=== PATIENT | male | born 1955 | race Caucasian/White ===

== ENCOUNTER 2022-10-07 20:33 | Inpatient (IN) | payer SELFPAY ==
[~2022-10-07] VITALS: Ht 188 cm; Wt 103.9 kg
[2022-10-07 20:50] VITALS: BP_SYST 189
--- NOTE | 2022-10-07 20:50 | NUR ---
Triaged and placed patient in ER bed 3 for evaluation. Report given to Jona YANEZ for continuity of care. VSS, no acute respiratory distress noted at this time. Instructed to notify ED staff for any changes in condition or worsening of symptoms. Patient verbalized understanding.
--- NOTE | 2022-10-07 20:50 | NUR ---
Triaged and placed patient back to the waiting room. No acute respiratory distress at this time. VSS. Informed patient to notify ED staff for any changes in condition or worsening of symptoms while waiting to be seen by a provider. Patient verbalized understanding.
--- NOTE | 2022-10-07 20:57 | NUR ---
Dr. Scott is at bedside examining the patient.
[2022-10-07 21:20] LABS: EOSINOPHILS # (AUTO) 0.2 K/uL (0.0-0.4); EOSINOPHILS % (AUTO) 2.4 % (0.0-4.0); LYMPHOCYTES # (AUTO) 0.8 K/uL (1.0-5.5); MONOCYTES # (AUTO) 0.8 K/uL (0.0-1.0)
[2022-10-07 21:25] LABS: BASOPHILS # (AUTO) 0.1 K/uL (0.0-0.2); BASOPHILS % (AUTO) 1.6 % (0.0-2.0); HEMATOCRIT 28.2 % (36-54); HEMOGLOBIN 9.7 g/dL (14.0-18.0); LYMPHOCYTES % (AUTO) 9.3 % (20.5-51.5); MEAN CORPUSCULAR HEMOGLOBIN 29 pg (27-31); MEAN CORPUSCULAR HGB CONC 35 % (32-36); MEAN CORPUSCULAR VOLUME 83 fL (79.0-98.0); MONOCYTES % (AUTO) 10.2 % (1.7-9.3); NEUTROPHILS # (AUTO) 6.3 K/uL (1.8-7.7); NEUTROPHILS % (AUTO) 76.5 % (40.0-70.0); PLATELET COUNT (AUTO) 299 K/uL (130-430); RED BLOOD CELL COUNT(AUTO) 3.39 MIL/uL (4.2-6.2); RED CELL DISTRIBUTION WIDTH 15.6 % (9.0-15.0); WHITE BLOOD COUNT (AUTO) 8.3 K/uL (4.8-10.8)
[2022-10-07 21:37] LABS: INR 1.1 (0.80-1.20); PROTHROMBIN TIME 11.5 SECS (9.5-12.5)
[2022-10-07 21:41] LABS: ALANINE AMINOTRANSFERASE 15 U/L (12-78); ANION GAP 20 (5-15); ASPARTATE AMINOTRANSFERASE 11 U/L (10-37); CALCIUM 7.1 mg/dL (8.4-11.0); CHLORIDE 100 mmol/L (98-107); GFR AFRICAN AMERICAN 6 mL/min (>90); GLUCOSE 110 mg/dL (70-99); TOTAL BILIRUBIN 0.4 mg/dL (0.0-1.0)
[2022-10-07 21:47] LABS: CREATININE 10.93 mg/dL (0.55-1.30); UREA NITROGEN, BLOOD 141 mg/dL (8-21)
[2022-10-07] MEDS ORDERED: NACL 0.9% 1,000 ML IV ONE (23:45)
--- NOTE | 2022-10-08 00:02 | NUR ---
Admit bed requested Patient will be admitted to care of . Admitted to TELE unit. Diagnosis ACUTE RENAL FAILURE Inpatient (Yes or No)Y Observation (Yes or No) N Orientation concerns or request close to nursing station (Yes or No) N Covid Status NA On vent or bipap N Isolation requirements N Needs a sitter N From Home (Yes or if No enter name of facility) Y Requires Dialysis N (Yes or No) Med Rec Completed Y (Yes of No)
[2022-10-08] MEDS ORDERED: NACL 0.9% 1,000 ML IV ONE ×2 (00:15)
[2022-10-08] MEDS ORDERED: hydrALAZINE HCL 10 MG TABLET PO ONE ×2 (01:15→02:15)
[2022-10-08] MEDS ORDERED: hydrALAZINE HCL 20 MG/ML VIAL ONE ×2 (01:17→02:20)
--- NOTE | 2022-10-08 02:04 | NUR ---
AFTER BONILLA INSERTION 4000ML EMPIED. ALSO AT BEDSIDE FOR ADDITIONAL EVAL. PT IN NO DISTRESSAND STATES HE FEELS BETTER.
--- NOTE | 2022-10-08 03:47 | NUR ---
1000 ML OF URINE EMPIED FROM BONILLA CATH PRIOR TO TRANSPORT TO ROOM.
--- NOTE | 2022-10-08 03:53 | NUR ---
Patient will be admitted to care of DR CEE. Admitted to TELE unit. Will go to room 102B . Belongings list completed. Complete and up to date summary report printed. SBAR report to be given at bedside with opportunity for questions.
[2022-10-08 04:23] LABS: ALBUMIN 3.5 g/dL (3.4-4.8); TOTAL BILIRUBIN 0.4 mg/dL (0.0-1.0)
[2022-10-08 04:29] LABS: CALCIUM 6.3 mg/dL (8.4-11.0)
[2022-10-08 04:30] LABS: CREATININE 10.49 mg/dL (0.55-1.30)
[2022-10-08 04:35] VITALS: BP_SYST 143
[2022-10-08] MEDS ORDERED: CALCIUM GLUCONATE 1 GM/10 ML VIAL IVP ONE (04:45)
--- NOTE | 2022-10-08 06:19 | NUR ---
CONSULTATION PAGED REASON FOR CONSULTATION: ELEVATED BUN AND CREATANINE WAS CONSULT CALLED? Y PERSON WHO WAS NOTIFIED: ZOHRA CONSULTING PHYSICIAN: JARED DURAND GUNSTOCK SPRAY UNIT ADJUSTER SPECIALTY: NEPHRO GUNSTOCK SPRAY UNIT ADJUSTER PHONE NUMBER: [phone] REQUESTING PHYSICIAN: DR.[facility]
--- NOTE | 2022-10-08 06:21 | NUR ---
DR. CEE NOTIFIED OF CRITICAL LAB VALUES OF BUN, CR, CA. NEW CONSULT ADDED.. NO OTHER ORDERS. CA COVERED PER ORDERS.
[2022-10-08] MEDS ORDERED: MORPHINE 2 MG/ML INJ. SYRINGE IVP ONE (07:30)
[2022-10-08] MEDS ORDERED: NALOXONE HCL 0.4 MG/ML AMP (NARCAN) IVP PRN ×3 (07:30→07:45)
[2022-10-08] MEDS ORDERED: MORPHINE 2 MG/ML INJ. SYRINGE IVP PRN (07:45)
[2022-10-08] MEDS ORDERED: POTASSIUM CHLORIDE 20 MEQ TAB.PRT.SR PO PRN (07:45)
[2022-10-08] MEDS ORDERED: ACETAMINOPHEN 325 MG TABLET PO PRN ×2 (07:45→10:00)
[2022-10-08] MEDS ORDERED: DOCUSATE SODIUM 100 MG CAPSULE PO PRN (07:45)
[2022-10-08] MEDS ORDERED: ONDANSETRON HCL 4 MG/2 ML VIAL IVP PRN (07:45)
[2022-10-08] MEDS ORDERED: LORazepam 2 MG/ML VIAL IVP PRN (07:45)
[2022-10-08] MEDS ORDERED: MUPIROCIN 2% TOPICAL OINTMENT 22 GM NS PRN (07:45)
[2022-10-08] MEDS ORDERED: MAGNESIUM SULFATE 50 ML IV PRN (07:45)
[2022-10-08 08:00] VITALS: BP_SYST 137
--- NOTE | 2022-10-08 08:00 | NUR ---
Start of shift Pt sitting up in bed eating his breakfast. Tele unit attached and intact. IV in LAC intact and patent infusing IVF's. St catheter intact and draining bloody clear drainage. Dr Asif on the floor doing rounds at this time.
[2022-10-08] MEDS ORDERED: CALCIUM CARBONATE 650 MG TABLET PO SCH (09:00)
[2022-10-08] MEDS ORDERED: NS IRRIG SOLN 1000 ML IR ONE (10:00)
[2022-10-08] MEDS ORDERED: LIDOCAINE 1% 10 MG/ML, 20 ML MDV ONE ×2 (10:00)
[2022-10-08] MEDS ORDERED: NS 1000 ML IV.SOLN IV ONE (10:00)
[2022-10-08 11:08] VITALS: BP_SYST 104
[2022-10-08] MEDS: METOPROLOL TARTRATE 25 MG TABLET PO SCH ×2 (12:15→20:56)
--- NOTE | 2022-10-08 12:35 | NUR ---
CONSULTATION PAGED REASON FOR CONSULTATION: BLOODY URINE WAS CONSULT CALLED? Y PERSON WHO WAS NOTIFIED: AWA CONSULTING PHYSICIAN: ADELSO PARIKH IMAGE CONSULTANT SPECIALTY: UROLOGY IMAGE CONSULTANT PHONE NUMBER: [phone] REQUESTING PHYSICIAN: DR.[facility]
[2022-10-08] MEDS ORDERED: METOPROLOL TARTRATE 25 MG TABLET ONE (13:37)
--- NOTE | 2022-10-08 14:05 | NUR ---
Note Pt resting in bed after finishing his lunch. LAC IV intact and patent infusing IVF's well. Call light within reach. Pt denies any needs all shift. St catheter intact and draining, drainage excavating supervisor at this time from dark pink/light red drainage.
--- NOTE | 2022-10-08 14:30 | NUR ---
Note Dr De Jesus (nephro) at bedside assessing pt and writing orders.
[2022-10-08] MEDS ORDERED: PHENAZOPYRIDINE HCL 100 MG TABLET PO ONE (14:45)
[2022-10-08] MEDS: NACL 0.9% 1,000 ML IV SCH (14:52)
[2022-10-08 16:30] VITALS: BP_SYST 153
[2022-10-08] MEDS: PHENAZOPYRIDINE HCL 100 MG TABLET PO SCH (17:41)
--- NOTE | 2022-10-08 18:35 | NUR ---
End of shift Pt has been having high BP due to pain, pt refused pain medications all shift. IV in LAC intact and patent infusing IVF's well. Pt's tele unit attached and intact. St catheter intact and draining. Pt was checked on q1' and PRN all shift for needs and care. Pt was maintained with safety precautions all shift. No needs noted. Bed in low position and bed alarm on. Call light within reach.
[2022-10-08 19:54] VITALS: BP_SYST 165
--- NOTE | 2022-10-08 20:00 | NUR ---
recieved pt from AM shift.pt sitting up in bed eating his dinner ( 50%). Tele unit attached and intact. IV NS @ 100 in LAC intact and patent infusing IVF's. pt has abdominal pain from cramps. will continously monitor. St catheter intact and draining bloody clear drainage. emptied 1000 ml bloody tinged urine. pt ambulatory, choses bedrest due to pain. will continue to monitor.
[2022-10-08] MEDS: MORPHINE 2 MG/ML INJ. SYRINGE IVP PRN (20:55)
[2022-10-08] MEDS: CALCIUM 500 MG/TAB PO SCH (20:56)
[2022-10-09] VITALS (7 sets, daily range): BP systolic 133–176
[2022-10-09] MEDS: NACL 0.9% 1,000 ML IV SCH ×2 (00:19→10:30)
[2022-10-09 05:08] LABS: BASOPHILS # (AUTO) 0.1 K/uL (0.0-0.2); BASOPHILS % (AUTO) 1.3 % (0.0-2.0); EOSINOPHILS # (AUTO) 0.1 K/uL (0.0-0.4); EOSINOPHILS % (AUTO) 1.4 % (0.0-4.0); HEMATOCRIT 31.1 % (36-54); HEMOGLOBIN 10.6 g/dL (14.0-18.0); LYMPHOCYTES # (AUTO) 0.8 K/uL (1.0-5.5); MEAN CORPUSCULAR HEMOGLOBIN 28 pg (27-31); MEAN CORPUSCULAR HGB CONC 34 % (32-36); MEAN CORPUSCULAR VOLUME 84 fL (79.0-98.0); MONOCYTES # (AUTO) 0.9 K/uL (0.0-1.0); MONOCYTES % (AUTO) 9.9 % (1.7-9.3); NEUTROPHILS % (AUTO) 78.4 % (40.0-70.0); PLATELET COUNT (AUTO) 326 K/uL (130-430); RED BLOOD CELL COUNT(AUTO) 3.72 MIL/uL (4.2-6.2); RED CELL DISTRIBUTION WIDTH 15.9 % (9.0-15.0); WHITE BLOOD COUNT (AUTO) 8.9 K/uL (4.8-10.8)
[2022-10-09 06:20] LABS: CALCIUM 6.8 mg/dL (8.4-11.0); CREATININE 9.33 mg/dL (0.55-1.30)
--- NOTE | 2022-10-09 07:20 | NUR ---
OPENING NOTE Patient laying in bed. A/O x4, Malian speaking. Breathing is even and unlabored on RA. No pain, no SOB, no distress noted. Patient has IV to LAC 22g patent on infusion pump. St draining orange/red urine to gravity due to medication. Patient is on Cardiac diet and able to feed himself. All needs met at this time. Bed is locked in lowest position. Call light within reach. Will continue with POC.
[2022-10-09] MEDS ORDERED: amLODIPine BESYLATE 5 MG TABLET PO SCH (09:00)
[2022-10-09] MEDS: METOPROLOL TARTRATE 50 MG TABLET PO SCH ×2 (09:31→20:25)
[2022-10-09] MEDS: PHENAZOPYRIDINE HCL 100 MG TABLET PO SCH ×2 (09:32→12:12)
[2022-10-09] MEDS: CALCIUM 500 MG/TAB PO SCH ×2 (09:43→20:25)
--- NOTE | 2022-10-09 12:00 | NUR ---
ROUNDS Patient laying in bed, resting. Breathing is even and unlabored on RA. No pain, no SOB, no distress noted. St draining orange/red urine to gravity. All needs met at this time. Bed is locked in lowest position. Call light within reach. Will continue with POC.
[2022-10-09] MEDS ORDERED: TAMS-11 PO (12:16)
--- NOTE | 2022-10-09 12:30 | NUR ---
UROLOGY Spoke with WRIST HEMMER saying she will see him later today or tomorrow regarding vegas/urinary needs.
--- NOTE | 2022-10-09 13:02 | NUR ---
MD Asif Relayed message to regarding urology and stated to stop Pyridium and to allow patient to start Flomax. MD wants Nephro to clear him before any discharge plan.
[2022-10-09] MEDS ORDERED: TAMSULOSIN HCL 0.4 MG CAP PO ONE (13:30)
[2022-10-09] MEDS: MORPHINE 2 MG/ML INJ. SYRINGE IVP PRN (14:50)
--- NOTE | 2022-10-09 18:45 | NUR ---
CLOSING NOTE Patient laying in bed, resting. A/O x4, St Helenian speaking. Breathing is even and unlabored on RA. No pain, no SOB, no distress noted. Patient has IV to LAC 22g patent on infusion pump. St draining orange/red urine to gravity. Patient is on Cardiac diet and able to feed himself. All needs met at this time. Bed is locked in lowest position. Call light within reach. Will endorse to nightshift nurse.
--- NOTE | 2022-10-09 20:00 | NUR ---
Opening notes Pt AAOx4, VSS, no s/s distress or discomfort noted. St catheter draining to gravity with orange urine. IVF infusing at ordered rate on L. AC 20G clear and patent. Call light/items within reach. To monitor.
[2022-10-09] MEDS: TAMSULOSIN HCL 0.4 MG CAP PO SCH (20:25)
[2022-10-10] MEDS: NACL 0.9% 1,000 ML IV SCH ×3 (00:33→16:30)
[2022-10-10 01:09] VITALS: BP_SYST 144
[2022-10-10 05:10] LABS: BASOPHILS # (AUTO) 0.2 K/uL (0.0-0.2); BASOPHILS % (AUTO) 1.9 % (0.0-2.0); EOSINOPHILS # (AUTO) 0.3 K/uL (0.0-0.4); EOSINOPHILS % (AUTO) 4.1 % (0.0-4.0); HEMATOCRIT 28.9 % (36-54); HEMOGLOBIN 9.7 g/dL (14.0-18.0); LYMPHOCYTES # (AUTO) 1.1 K/uL (1.0-5.5); LYMPHOCYTES % (AUTO) 12.6 % (20.5-51.5); MEAN CORPUSCULAR HEMOGLOBIN 28 pg (27-31); MEAN CORPUSCULAR HGB CONC 34 % (32-36); MEAN CORPUSCULAR VOLUME 83 fL (79.0-98.0); MONOCYTES % (AUTO) 12.4 % (1.7-9.3); NEUTROPHILS # (AUTO) 5.8 K/uL (1.8-7.7); PLATELET COUNT (AUTO) 295 K/uL (130-430); RED BLOOD CELL COUNT(AUTO) 3.47 MIL/uL (4.2-6.2); RED CELL DISTRIBUTION WIDTH 15.9 % (9.0-15.0); WHITE BLOOD COUNT (AUTO) 8.3 K/uL (4.8-10.8)
--- NOTE | 2022-10-10 05:50 | NUR ---
Closing notes Pt asleep, no s/s distress or discomfort noted. St catheter draining to gravity with orange urine, good output. IVF infusing at ordered rate on L. AC 20G clear and patent. Call light/items within reach. To endorse to AM nurse.
[2022-10-10 05:55] LABS: CALCIUM 6.3 mg/dL (8.4-11.0); CREATININE 8.3 mg/dL (0.55-1.30)
[2022-10-10] MEDS ORDERED: CALCIUM GLUCONATE 1 GM in NS 100 ML IV ONE (08:00)
[2022-10-10] MEDS: CALCIUM 500 MG/TAB PO SCH ×2 (08:46→21:19)
[2022-10-10] MEDS: TAMSULOSIN HCL 0.4 MG CAP PO SCH ×2 (08:47→21:19)
[2022-10-10] MEDS: amLODIPine BESYLATE 10 MG TABLET PO SCH (08:51)
[2022-10-10] MEDS: METOPROLOL TARTRATE 50 MG TABLET PO SCH ×2 (08:52→21:22)
[2022-10-10] MEDS: MAGNESIUM OXIDE 400 MG TABLET PO SCH ×2 (08:54→21:18)
--- NOTE | 2022-10-10 09:01 | NUR ---
PATIENT REFUSED METOPROLOL AT THIS TIME,EDUCATED ON RISKS AND BENEFITS OF NOT ADHERING TO POC
[2022-10-10 11:22] VITALS: BP_SYST 142
--- NOTE | 2022-10-10 12:00 | NUR ---
emptied vegas of 800ml christine urine, small amount of blood clots observed
[2022-10-10 15:12] VITALS: BP_SYST 130
--- NOTE | 2022-10-10 18:59 | NUR ---
patient resting comfortably in bed, no s/sx of pain or discomfort observed, iv in patent and infusing ns @100ml/hr, vegas draining christine urine, no other concerns at this time, will endorse care to pm nurse
--- NOTE | 2022-10-10 19:12 | NUR ---
Dietitian Recommendations * Renal, 70 gm protein diet * RD provided renal MNT LP, MS, RD Please refer to Nutrition Assessment for details.
--- NOTE | 2022-10-10 19:18 | NUR ---
Dietitian Recommendations * Renal, 70 gm protein diet * RD provided renal MNT LP, MS, RD Please refer to Nutrition Assessment for details. Addendum: 10/10/22 at [address] Amended: Links added.
[2022-10-10 20:00] VITALS: BP_SYST 140
[2022-10-11 00:13] VITALS: BP_SYST 128
[2022-10-11 04:44] LABS: BASOPHILS # (AUTO) 0.2 K/uL (0.0-0.2); BASOPHILS % (AUTO) 1.8 % (0.0-2.0); EOSINOPHILS # (AUTO) 0.4 K/uL (0.0-0.4); EOSINOPHILS % (AUTO) 5.2 % (0.0-4.0); HEMATOCRIT 27.4 % (36-54); HEMOGLOBIN 9.3 g/dL (14.0-18.0); LYMPHOCYTES # (AUTO) 0.9 K/uL (1.0-5.5); LYMPHOCYTES % (AUTO) 10.3 % (20.5-51.5); MEAN CORPUSCULAR HEMOGLOBIN 29 pg (27-31); MEAN CORPUSCULAR HGB CONC 34 % (32-36); MEAN CORPUSCULAR VOLUME 84 fL (79.0-98.0); MONOCYTES # (AUTO) 0.9 K/uL (0.0-1.0); MONOCYTES % (AUTO) 11.2 % (1.7-9.3); NEUTROPHILS % (AUTO) 71.5 % (40.0-70.0); PLATELET COUNT (AUTO) 275 K/uL (130-430); RED BLOOD CELL COUNT(AUTO) 3.27 MIL/uL (4.2-6.2); RED CELL DISTRIBUTION WIDTH 15.5 % (9.0-15.0); WHITE BLOOD COUNT (AUTO) 8.4 K/uL (4.8-10.8)
[2022-10-11] MEDS: NACL 0.9% 1,000 ML IV SCH ×3 (04:49→23:10)
[2022-10-11 05:12] LABS: CREATININE 7.49 mg/dL (0.55-1.30)
[2022-10-11 05:32] LABS: CALCIUM 6.1 mg/dL (8.4-11.0)
[2022-10-11] MEDS ORDERED: CALCIUM GLUCONATE 1 GM in NS 100 ML IV ONE (06:45)
[2022-10-11 08:00] VITALS: BP_SYST 120
[2022-10-11] MEDS: METOPROLOL TARTRATE 50 MG TABLET PO SCH ×2 (10:05→22:52)
[2022-10-11] MEDS: TAMSULOSIN HCL 0.4 MG CAP PO SCH ×2 (10:05→22:47)
[2022-10-11] MEDS: CALCIUM 500 MG/TAB PO SCH ×2 (10:07→22:48)
[2022-10-11] MEDS: amLODIPine BESYLATE 10 MG TABLET PO SCH (10:07)
[2022-10-11] MEDS: MAGNESIUM OXIDE 400 MG TABLET PO SCH ×2 (10:07→21:00)
[2022-10-11 11:02] VITALS: BP_SYST 135
--- NOTE | 2022-10-11 11:14 | NUR ---
PATIENT STILL NOT DECIDED TO SIGN CONSENT PATIENT WANTED TO SPEAK TO DR MEDRANO REGARDING HIS PROCEDURE, HE WANTS TO KNOW IF HOW LONG HE WILL HAVE THE NEPHROSTOMY TUBE AND IF HE WILL KEEP THE BONILLA CATHETER IF THEY WILL PUT THE NEPHROSTOMY TUBE, PATIENT HAS MORE QUESTION TO ASK WITH TELESCOPE OPERATOR. DR MEDRANO SPOKE TO PATIENT AND ANSWERED ALL QUESTIONS OF THE PATIENT. PATIENT WANTS ME TO WAIT AND WANTS TO GIVE HIM TIME TO DECIDE.
[2022-10-11] MEDS: fentaNYL CITRATE/PF 100 MCG/2 ML AMP ONE ×4 (13:51→16:33)
[2022-10-11] MEDS: MIDAZOLAM HCL 5 MG/5 ML VIAL ONE ×5 (13:51→17:21)
--- NOTE | 2022-10-11 16:39 | NUR ---
Patient ultimately spoke with both Dr. Asif and Dr. Queen and decided it was OK to have the procedure. Patient was taken to IR suite at 1530 and is currently having procedure now. Consents were signed earlier this afternoon. Patient was calm and stable when taken for insertion of bilateral nephrostomy tubes.
--- NOTE | 2022-10-11 19:15 | NUR ---
Assumed care of patient awake, alert, oriented. vital signs stable, afebrile.IVF infusing as ordered Has vegas catheter in place with pink tinged urine. Call light in place, side rails up. Continue to monitor.
[2022-10-11 19:30] VITALS: BP_SYST 130
[2022-10-11 20:15] VITALS: BP_SYST 125
[2022-10-11] MEDS: ZOLPIDEM TARTRATE 5 MG TABLET PO PRN (22:48)
--- NOTE | 2022-10-11 23:10 | NUR ---
C/o pain 09/25. stated he only wanted tylenol for the pain. medicated . Will continue to monitor.
[2022-10-12 00:23] VITALS: BP_SYST 138
[2022-10-12 04:20] VITALS: BP_SYST 123
[2022-10-12 06:35] LABS: CREATININE 6.84 mg/dL (0.55-1.30)
[2022-10-12 06:37] LABS: BASOPHILS # (AUTO) 0.2 K/uL (0.0-0.2); BASOPHILS % (AUTO) 1.8 % (0.0-2.0); EOSINOPHILS # (AUTO) 0.4 K/uL (0.0-0.4); EOSINOPHILS % (AUTO) 4.5 % (0.0-4.0); HEMATOCRIT 27.4 % (36-54); HEMOGLOBIN 9.2 g/dL (14.0-18.0); LYMPHOCYTES # (AUTO) 0.6 K/uL (1.0-5.5); LYMPHOCYTES % (AUTO) 6.8 % (20.5-51.5); MEAN CORPUSCULAR HEMOGLOBIN 28 pg (27-31); MEAN CORPUSCULAR HGB CONC 34 % (32-36); MEAN CORPUSCULAR VOLUME 84 fL (79.0-98.0); MONOCYTES # (AUTO) 1.1 K/uL (0.0-1.0); MONOCYTES % (AUTO) 11.5 % (1.7-9.3); NEUTROPHILS # (AUTO) 7.2 K/uL (1.8-7.7); NEUTROPHILS % (AUTO) 75.4 % (40.0-70.0); PLATELET COUNT (AUTO) 272 K/uL (130-430); RED BLOOD CELL COUNT(AUTO) 3.26 MIL/uL (4.2-6.2); RED CELL DISTRIBUTION WIDTH 15.5 % (9.0-15.0); WHITE BLOOD COUNT (AUTO) 9.5 K/uL (4.8-10.8)
[2022-10-12 06:54] LABS: CALCIUM 6.2 mg/dL (8.4-11.0)
--- NOTE | 2022-10-12 07:13 | NUR ---
PAGE TO DR. CEE FOR ABNORMAL LAB CA 6.2. BUN 107
--- NOTE | 2022-10-12 07:40 | NUR ---
Opening Notes Patient is Aox4. Comfortable and pleasant. Patient is vision impaired. Patient denies severe pain. No distress noted. Breathing is even and nonlabored, on room air. Vital signs obtained, as documented. NO SOB noted. IV appears to be patent. No ss of infiltration noted. Patient has bilateral nephrostomy tubes in place. Draining yellow urine with blood tinted. Emptied nephrostomy tubes. Right nephrostomy tube output was 100 cc and left nephrostomy tube output was 250 cc. Dressing clean, dry, and intact. Patient has St cath draining by gravity. Bed is locked, alarm on, and at lowest position. Call light within reach.
--- NOTE | 2022-10-12 07:55 | NUR ---
have not received call back from md regarding abnormal labs. endorsed to day shift rn
[2022-10-12 08:05] VITALS: BP_SYST 133
--- NOTE | 2022-10-12 08:19 | NUR ---
MD/CRITICAL MD CAME TO SEE THE PATIENT AT BEDSIDE, MD MADE AWARE OF CRITICAL LAB VALUE OF BUN AND CALCIUM.
[2022-10-12] MEDS: TAMSULOSIN HCL 0.4 MG CAP PO SCH ×2 (08:33→21:02)
[2022-10-12] MEDS: METOPROLOL TARTRATE 50 MG TABLET PO SCH ×2 (08:34→21:03)
[2022-10-12] MEDS: amLODIPine BESYLATE 10 MG TABLET PO SCH (08:34)
[2022-10-12] MEDS: CALCIUM 500 MG/TAB PO SCH ×2 (08:34→21:02)
[2022-10-12] MEDS: MAGNESIUM OXIDE 400 MG TABLET PO SCH ×2 (08:35→21:01)
[2022-10-12] MEDS: NACL 0.9% 1,000 ML IV SCH ×2 (08:36→22:36)
--- NOTE | 2022-10-12 08:42 | NUR ---
Notes Morning medication were given, patient denied pain. flush IV, IV patent, IV fluids running. All safety precautions in place and patient eating breakfast. Call light within reach.
[2022-10-12] MEDS ORDERED: CALCIUM GLUCONATE 2 GM in NS 100 ML IV ONE (09:00)
--- NOTE | 2022-10-12 10:18 | NUR ---
Dr. Queen's CRUISE DIRECTOR was at bedside, and assessed patient. Nephrostomy tubes leaking, CRUISE DIRECTOR aware, charge nurse aware. New orders placed.
--- NOTE | 2022-10-12 11:37 | NUR ---
ROUNDING NOTES PATIENTS STATED HE FELT NEPHROSTOMY TUBE LEAKAGE AND WET. EMPTIED NEPHROSTOMY TUBE, RIGHT NEPHROSTOMY TUBE OUTPUT WAS 100CC, CLEARED YELLOW URINE. LEFT NEPHROSTOMY TUBE OUTPUT WAS 260CC, DARK YELLOW WITH RED TINT. BONILLA CATH EMPTIED 350CC. OUTPUT DOCUMENTED. PATIENT HAS BEEN CLEANED, LINEN CHANGED.
[2022-10-12 11:51] VITALS: BP_SYST 141
--- NOTE | 2022-10-12 12:19 | NUR ---
notes US tech with patient at bedside. Renal ultrasound being done at this time.
--- NOTE | 2022-10-12 13:43 | NUR ---
Called Dr. Queen, no answer. left message. waiting for callback.
--- NOTE | 2022-10-12 14:10 | NUR ---
NOTES CHANGED ALL BED LINEN AND PATIENT AMBULATED TO RESTROOM. NEPHROSTOMY TUBE DRAINING; RIGHT 150CC, CLEAR YELLOW LEFT 350CC, DARK YELLOW WITH RED/ BLOOD , NO CLOTS PATIENT BACK IN BED. DENIES PAIN. ALL SAFETY PRECAUTIONS IN PLACE AND CALL LIGHT WITHIN REACH. Addendum: 10/12/22 at 1747 by Sara Castro LVN NOTES CHANGED ALL BED LINEN AND PATIENT AMBULATED TO RESTROOM. NEPHROSTOMY TUBE DRAINING; RIGHT 150CC, CLEAR YELLOW WITH REDDISH TINT LEFT 350CC, DARK YELLOW/ RED/ BLOOD , NO CLOTS PATIENT BACK IN BED. DENIES PAIN. ALL SAFETY PRECAUTIONS IN PLACE AND CALL LIGHT WITHIN REACH.
[2022-10-12] MEDS: MORPHINE 2 MG/ML INJ. SYRINGE IVP PRN (16:23)
--- NOTE | 2022-10-12 16:32 | NUR ---
notes called and spoke with Dr. Queen. Clarified with Dr. Queen about irrigating nephrostomy tubes and reported renal ultrasound report. Per MD, no need to irrigate nephrotomy tubes. MD aware of renal US report.
[2022-10-12 16:44] VITALS: BP_SYST 148
--- NOTE | 2022-10-12 18:46 | NUR ---
CLOSING NOTES PATIENT IS EATING DINNER. COMFORTABLE AND PLEASANT. DENIES SEVERE PAIN. NO SS OF DISTRESS NOTED. BREATHING IS EVEN AND NONLABORED, ON ROOM AIR. NO SOB NOTED. IV PATENT. NO SS OF INFILTRATION NOTED. IVF RUNNING. BONILLA CATHETER DRAINING YELLOW/ RED TINT URINE BY GRAVITY. BILATERAL NEPHROSTOMY TUBES DRAINING BY GRAVITY. RIGHT NEPHROSTOMY TUBE DRAINING CLEAR YELLOW WITH RED HUE TINT AND LEFT NEPHROSTOMY TUBE DRAINING RED COLOR URINE. MD HAS BEEN MADE AWARE. ALL NEEDS MET. BED IS LOCKED, ALARM ON, AND AT LOWEST POSITION. CALL LIGHT WITHIN REACH.
--- NOTE | 2022-10-12 19:30 | NUR ---
OPENING Received patient resting in bed, no s/s distress noted. AOx4. St catheter and bilateral nephrostomy tubes patent, draining to gravity. Call light in reach, safety precautions in place.
[2022-10-12 20:50] VITALS: BP_SYST 129
[2022-10-13] VITALS: BP_SYST 120
--- NOTE | 2022-10-13 02:02 | NUR ---
NOTES Patient resting in bed, no s/s distress. IV fluids infusing. St draining red tinged urine. Left nephrostomy draining red urine with some clots. Right nephrostomy draining clear urine with slight pink tinge. Call light in reach, bed low and locked.
[2022-10-13] MEDS: NACL 0.9% 1,000 ML IV SCH ×2 (04:30→20:34)
--- NOTE | 2022-10-13 06:47 | NUR ---
CLOSING Patient resting in bed, unlabored breathing on room air. Left nephrostomy draining red urine, no clots seen this morning, 2075 mL total during shift. Right nephrostomy draining clear pink tinged urine, 925 mL total during shift. St catheter draining red urine, 135 mL total during shift. IV fluids infusing. Safety precautions in place.
[2022-10-13 07:06] LABS: CREATININE 6.45 mg/dL (0.55-1.30)
[2022-10-13 07:09] LABS: CALCIUM 6.6 mg/dL (8.4-11.0)
[2022-10-13 07:22] LABS: BASOPHILS # (AUTO) 0.1 K/uL (0.0-0.2); BASOPHILS % (AUTO) 1.2 % (0.0-2.0); EOSINOPHILS # (AUTO) 0.3 K/uL (0.0-0.4); EOSINOPHILS % (AUTO) 3.3 % (0.0-4.0); HEMATOCRIT 25.7 % (36-54); HEMOGLOBIN 8.6 g/dL (14.0-18.0); LYMPHOCYTES # (AUTO) 0.9 K/uL (1.0-5.5); LYMPHOCYTES % (AUTO) 9.1 % (20.5-51.5); MEAN CORPUSCULAR HEMOGLOBIN 28 pg (27-31); MEAN CORPUSCULAR HGB CONC 34 % (32-36); MEAN CORPUSCULAR VOLUME 84 fL (79.0-98.0); MONOCYTES % (AUTO) 10.7 % (1.7-9.3); NEUTROPHILS # (AUTO) 7.2 K/uL (1.8-7.7); NEUTROPHILS % (AUTO) 75.7 % (40.0-70.0); PLATELET COUNT (AUTO) 258 K/uL (130-430); RED BLOOD CELL COUNT(AUTO) 3.06 MIL/uL (4.2-6.2); RED CELL DISTRIBUTION WIDTH 15.5 % (9.0-15.0); WHITE BLOOD COUNT (AUTO) 9.5 K/uL (4.8-10.8)
[2022-10-13 08:00] VITALS: BP_SYST 133
--- NOTE | 2022-10-13 08:00 | NUR ---
OPENING NOTE; PT RESTING IN BED, BREATHING NON-LABORED AND REGULAR. DENIES ANY PAIN,SOB, OR ACUTE DISTRESS. BILATERAL NEPHROSTOMY TUBES DRAINING BY GRAVITY. BONILLA CATHETER DARNING BY GRAVITY. IVF RUNNING ORDERED. NO IV INFILTRATION OR INFECTION NOTED. SAFETY PRECAUTION IN PLACE. WILL CONT TO MONITOR FOR ANY CHANGE.
[2022-10-13] MEDS: METOPROLOL TARTRATE 50 MG TABLET PO SCH ×2 (08:23→20:31)
[2022-10-13] MEDS: CALCIUM 500 MG/TAB PO SCH ×2 (08:24→20:27)
[2022-10-13] MEDS: TAMSULOSIN HCL 0.4 MG CAP PO SCH ×2 (08:24→20:27)
[2022-10-13] MEDS: MAGNESIUM OXIDE 400 MG TABLET PO SCH ×2 (08:24→20:27)
[2022-10-13] MEDS: amLODIPine BESYLATE 10 MG TABLET PO SCH (08:26)
--- NOTE | 2022-10-13 08:45 | NUR ---
AT BEDSIDE, ASSESSING PT.
--- NOTE | 2022-10-13 10:00 | NUR ---
D/C BONILLA CATHETER ORDERED. PT TOLERATED WELL
[2022-10-13 12:47] VITALS: BP_SYST 141
--- NOTE | 2022-10-13 14:00 | NUR ---
PT WALKED WITH STUDENT NURSES INDEPENDENTLY WITH STEADY GAIT. NO C/O PAIN.
--- NOTE | 2022-10-13 14:20 | NUR ---
NEW PIV INITIATED DUE TO PREVIOUS ONE PULLED OUT ACCIDENTLY. 22G PIV TO LEFT HAND. FLUSHED WITH NC 10CC AND GOOD BLOOD RETURN NOTED BY USING ASEPTIC TECHNIQUE. PT DENIES ANY PAIN OR DISCOMFORT AT THE SITE. WRAPPED WITH KERLIX TO SECURE THE SITE. IFV RUNNING ORDERED. WILL CONT TO MONITOR FOR ANY CHANGE.
[2022-10-13 16:40] VITALS: BP_SYST 137
--- NOTE | 2022-10-13 17:00 | NUR ---
PT RESTING IN BED, USING CELL PHONE. DENIES ANY PAIN OR DISCOMFORT AT THIS TIME. WILL CONT TO MONITOR FOR ANY CHANGES
--- NOTE | 2022-10-13 18:12 | NUR ---
PT RETAINING URINE 635ML, HAD PT TO STAND UP TO VOID, BUT UNABLE. PT DOES NOT WANT BONILLA CATHETER AT THIS TIME. PT DENIES ANY PAIN OR DISCOMFORT TO LOWER ABDOMEN. PT WANTS TO TRY LATER TODAY. CALLED DR. MEDRANO'S CELL PHONE, LEFT A VOICE MESSAGE. AWAITING FOR HIM TO CALL BACK.
--- NOTE | 2022-10-13 19:07 | NUR ---
CLOSING NOTE; PT SLEEPING IN BED, BREATHING NON-LABORED AND REGULAR. NO S/S OF ANY PAIN,SOB, OR ACUTE DISTRESS. BILATERAL NEPHROSTOMY TUBES DRAINING BY GRAVITY. IVF RUNNING ORDERED. NO IV INFILTRATION OR INFECTION NOTED. SAFETY PRECAUTION IN PLACE. CALL LIGHT WITHIN REACH. AWAITING DR. MEDRANO TO CALL BACK. WILL ENDORSE CARE TO FILM PRODUCER NURSE
[2022-10-13 20:07] VITALS: BP_SYST 126
[2022-10-13] MEDS: ZOLPIDEM TARTRATE 5 MG TABLET PO PRN (20:39)
--- NOTE | 2022-10-13 22:14 | NUR ---
Patient has not voided following St removal. Bladder scan 723 mL. No distention or discomfort. Bilateral nephrostomies continuing to drain well. Patient states he doesn't feel like he needs to void now but will try more later. Patient also said he does not want a St reinserted, and stated "that is not happening, no way." Patient stated he thinks he needs to rest and sleep. Education provided, patient verbalized understanding. Voice messages left for Dr. Queen, awaiting callback. Updated Dr. Candelario, who stated to continue to monitor and try to reach Dr. Queen, and that Dr. Queen may see the patient again tomorrow.
--- NOTE | 2022-10-13 23:45 | NUR ---
DR. MEDRANO Received call back from Dr. Medrano and let him know that patient has not voided and about bladder scan of 723mL. Per Dr. Medrano, this is expected due to patient's enlarged prostate. Continue current plan of care, no new orders at this time.
[2022-10-14] VITALS: BP_SYST 140
[2022-10-14] MEDS: NACL 0.9% 1,000 ML IV SCH (00:30)
--- NOTE | 2022-10-14 07:32 | NUR ---
CLOSING Patient resting in bed, unlabored breathing on room air. Bilateral nephrostomies draining well with more output on left than right. Left nephrostomy draining clear pink tinged urine. Right nephrostomy draining pink/red tinged with some clots. IV fluids infusing. Safety precautions in place.
[2022-10-14 08:00] VITALS: BP_SYST 130
[2022-10-14] MEDS: CALCIUM 500 MG/TAB PO SCH (08:49)
[2022-10-14] MEDS: MAGNESIUM OXIDE 400 MG TABLET PO SCH (08:49)
[2022-10-14] MEDS: TAMSULOSIN HCL 0.4 MG CAP PO SCH (08:49)
[2022-10-14] MEDS: amLODIPine BESYLATE 10 MG TABLET PO SCH (08:50)
[2022-10-14] MEDS: METOPROLOL TARTRATE 50 MG TABLET PO SCH (08:56)
[2022-10-14] MEDS ORDERED: NOR10 PO (10:21)
[2022-10-14] MEDS ORDERED: TAMS-11 PO (10:21)
[2022-10-14 10:52] LABS: BASOPHILS # (AUTO) 0.1 K/uL (0.0-0.2); BASOPHILS % (AUTO) 1.4 % (0.0-2.0); EOSINOPHILS # (AUTO) 0.2 K/uL (0.0-0.4); EOSINOPHILS % (AUTO) 1.8 % (0.0-4.0); HEMATOCRIT 24.3 % (36-54); HEMOGLOBIN 8.2 g/dL (14.0-18.0); LYMPHOCYTES # (AUTO) 0.7 K/uL (1.0-5.5); LYMPHOCYTES % (AUTO) 6.5 % (20.5-51.5); MEAN CORPUSCULAR HEMOGLOBIN 28 pg (27-31); MEAN CORPUSCULAR HGB CONC 34 % (32-36); MEAN CORPUSCULAR VOLUME 84 fL (79.0-98.0); MONOCYTES # (AUTO) 1.3 K/uL (0.0-1.0); MONOCYTES % (AUTO) 12.4 % (1.7-9.3); NEUTROPHILS % (AUTO) 77.9 % (40.0-70.0); PLATELET COUNT (AUTO) 256 K/uL (130-430); RED BLOOD CELL COUNT(AUTO) 2.88 MIL/uL (4.2-6.2); RED CELL DISTRIBUTION WIDTH 15.5 % (9.0-15.0); WHITE BLOOD COUNT (AUTO) 10.3 K/uL (4.8-10.8)
--- NOTE | 2022-10-14 10:53 | NUR ---
Conversation held with RENATA SOLOMON, Obdulio Osborn, regarding the patient's needs now and after discharge. The patient is in need of assistance with applying for both medical care and medical. I advised the nurse that it has already been determined by the admission's office that the patient will not qualify for medical. The patient will be eligible for medical come October, however the patient has not applied for medical yet. The family has also requested information on [employer]. I met with patient at bedside. I provided him resources based on my conversation with the CM. At the time of my visit, Dr. Candelario was at bedside reviewing his plan of care. The patient indicated that his son will be in, and I advised him that should he have any questions or concerns, the son could reach out to me. I informed him about the POA and advised that he could complete at his convenience. At this time, the patient had no concerns or questions. He is aware that he needs to apply for medicare prior to his 67th birthday in order to have hospital coverage.
[2022-10-14 11:06] VITALS: BP_SYST 126
[2022-10-14 11:25] LABS: CREATININE 5.56 mg/dL (0.55-1.30)
[2022-10-14 11:27] LABS: CALCIUM 6.6 mg/dL (8.4-11.0)
[2022-10-14 11:42] VITALS: BP_SYST 126
--- NOTE | 2022-10-14 11:50 | NUR ---
CRITICAL LAB FOR CALCIUM 6.6, PAGED . NO NEW ORDER AT THIS TIME PER .
--- NOTE | 2022-10-14 14:20 | NUR ---
D/C Patient Patient given medication reconciliation form and D/C instructions. Provided pt and son education regarding how to take care of nephrostomy tubes. Patient and son verbalized understanding. Provided extra dressings and tapes that are needed for dressing change. MD discussed with patient the results and treatment provided. Escorted patient out via wheelchair for discharge to home. Patient in stable condition, ID band removed. IV catheter removed, intact and dressing applied, no active bleeding. Patient educated on pain management. All belongings sent with patient.
== END 2022-10-14 14:15 | disposition home or self-care (01) | DRG 694 ==
LOC: SED 20:33 → STU 10-08 00:25 → SMU 10-09 13:00
PROVIDERS: ADMIT General Practice; ATTEND General Practice
PROC: 0T933ZZ Drainage of Right Kidney Pelvis, Percutaneous Approach (ICD-10-PCS; 2022-10-11)
PROC: BT43ZZZ Ultrasonography of Bilateral Kidneys (ICD-10-PCS; 2022-10-11)
PROC: BT13ZZZ Fluoroscopy of Bilateral Kidneys (ICD-10-PCS; 2022-10-11)
PROC: 0T943ZZ Drainage of Left Kidney Pelvis, Percutaneous Approach (ICD-10-PCS; principal; 2022-10-11 15:55)
DX: N13.30 Unspecified hydronephrosis (principal); I12.9 Hypertensive chronic kidney disease with stage 1 through stage 4 chronic kidney disease, or unspecified chronic kidney disease; N17.0 Acute kidney failure with tubular necrosis; E83.51 Hypocalcemia; D63.8 Anemia in other chronic diseases classified elsewhere; E86.0 Dehydration; N40.0 Benign prostatic hyperplasia without lower urinary tract symptoms; Z20.822 Contact with and (suspected) exposure to COVID-19; N18.9 Chronic kidney disease, unspecified
CPT/HCPCS: 36415; 50432; 71045; 76376; 76770; 76942-TC; 80048; 80053; 82550; 83037; 83605; 83735; 83880; 84484; 85025; 85610-TC; 85730-TC; 86886; 86900; 86901; 93005; 96360; 96361; 99285; C1729; C1750; G0378; J0360; J0610; J2001; J2250; J2270; J3010; J3475; J7030; Q9967

== ENCOUNTER 2022-10-18 21:23 | Emergency (ER) | payer SELFPAY ==
[~2022-10-18] VITALS: Ht 188 cm; Wt 108.4 kg
[~2022-10-18 21:23] MED LIST: NOR10 PO; TAMS-11 PO
[2022-10-18 21:48] VITALS: BP_SYST 130
[2022-10-18 23:30] VITALS: BP_SYST 130
== END 2022-10-18 23:31 | disposition home or self-care (01) ==
LOC: SED 21:23
DX: T83.032A Leakage of nephrostomy catheter, initial encounter (principal); Z79.899 Other long term (current) drug therapy
CPT/HCPCS: 99281